=== PATIENT | male | born 2000 | race Hispanic/Latino ===

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

== ENCOUNTER 2023-07-07 00:36 | Emergency (ER) | payer BC, MEDICAID ==
[~2023-07-07] VITALS: Ht 175.3 cm; Wt 129.7 kg
[2023-07-07 01:06] LABS: BASOPHILS # (AUTO) 0.13 K/uL (0.00-0.20); BASOPHILS % (AUTO) 0.9 % (0.0-5.0); EOSINOPHILS # (AUTO) 0.13 K/uL (0.00-0.70); EOSINOPHILS % (AUTO) 0.9 % (0.0-8.0); HEMATOCRIT 33.8 % (42-54); IMMATURE GRANULOCYTE ABSOLUTE 0.14 K/uL (0-1); LYMPHOCYTES # (AUTO) 1.9 K/uL (1.0-4.8); LYMPHOCYTES % (AUTO) 12.9 % (21.0-51.0); MEAN CORPUSCULAR HEMOGLOBIN 30.2 pg (27.0-33.0); MEAN CORPUSCULAR HGB CONC 32.5 g/dL (32.0-36.0); MEAN CORPUSCULAR VOLUME 92.9 fL (80-100); NEUTROPHILS # (AUTO) 11.3 K/uL (1.8-7.7); NEUTROPHILS % (AUTO) 77.3 % (40.0-77.0); PLATELET COUNT (AUTO) 595 K/uL (130-400); RED BLOOD CELL COUNT(AUTO) 3.64 MIL/uL (4.50-6.20); RED CELL DISTRIBUTION WIDTH 12.8 % (11.0-15.5); WHITE BLOOD COUNT (AUTO) 14.7 K/uL (4.8-10.8)
[2023-07-07 01:08] LABS: APPEARANCE,URINE CLEAR (CLEAR); BILIRUBIN,URINE NEGATIVE (NEGATIVE); COLOR,URINE YELLOW (YELLOW); GLUCOSE, URINE (UA) NEGATIVE (NEGATIVE); KETONES,URINE NEGATIVE (NEGATIVE); LEUKOCYTE ESTERASE ,URINE NEGATIVE Leu/uL (NEGATIVE); NITRATE,URINE NEGATIVE (NEGATIVE); OCCULT BLOOD,URINE NEGATIVE (NEGATIVE); PH,URINE 5.5 (5.0-8.0); PROTEIN,URINE 20 mg/dL (NEGATIVE)
[2023-07-07 01:13] LABS: ADD UA MICROSCOPIC YES
[2023-07-07 01:14] LABS: MUCUS,URINE FEW LPF (None Seen); RBC,URINE 0-1 /HPF (0-1); SQUAMOUS EPITHELIAL CELL,UR RARE /HPF (0-2)
[2023-07-07] MEDS: MAGNESIUM HYDROXIDE 30 ML/UDCUP PO SCH (01:15)
[2023-07-07 01:26] LABS: POTASSIUM 4.1 mmol/L (3.5-5.1)
[2023-07-07 01:47] LABS: ALBUMIN 3.4 g/dL (3.5-5.0); CREATININE 0.7 mg/dL (0.5-1.3); TOTAL PROTEIN, SERUM 8.1 g/dL (6.0-8.3)
[2023-07-07] MEDS ORDERED: ONDA-104 PO (04:36)
[2023-07-07] MEDS ORDERED: MAG-55 PO (04:36)
[2023-07-07] MEDS ORDERED: OMEP40CA21 PO (04:36)
[2023-07-07 05:14] VITALS: BP 148/81; PULSE 95; RESP 20; O2SAT 98
== END 2023-07-07 05:16 | disposition home or self-care (01) ==
LOC: EDH 00:36
DX: K29.70 Gastritis, unspecified, without bleeding (principal); K59.00 Constipation, unspecified
CPT/HCPCS: 36415; 74018; 80053; 81001; 83880; 84484; 85025; 93005

== ENCOUNTER 2023-08-27 16:32 | Emergency (ER) | payer BC ==
[~2023-08-27] VITALS: Ht 175.3 cm; Wt 120.2 kg
[~2023-08-27 16:32] MED LIST: OMEP40CA21 PO
[2023-08-27 17:25] VITALS: BP 108/60; PULSE 87; RESP 18; O2SAT 99
== END 2023-08-27 17:55 | disposition home or self-care (01) ==
LOC: EDH 16:32
DX: Z48.03 Encounter for change or removal of drains (principal); K21.9 Gastro-esophageal reflux disease without esophagitis; Z79.899 Other long term (current) drug therapy; Z90.49 Acquired absence of other specified parts of digestive tract
CPT/HCPCS: 99281

== ENCOUNTER 2023-11-04 10:23 | Day surgery (SDC) | payer BC ==
[2023-11-04 10:44] LABS: BASOPHILS # (AUTO) 0.08 K/uL (0.00-0.20); EOSINOPHILS # (AUTO) 0.18 K/uL (0.00-0.70); EOSINOPHILS % (AUTO) 2.2 % (0.0-8.0); HEMATOCRIT 41.4 % (42-54); IMMATURE GRANULOCYTE ABSOLUTE 0.03 K/uL (0-1); LYMPHOCYTES # (AUTO) 2.6 K/uL (1.0-4.8); MEAN CORPUSCULAR HEMOGLOBIN 28.1 pg (27.0-33.0); MEAN CORPUSCULAR HGB CONC 31.4 g/dL (32.0-36.0); MEAN CORPUSCULAR VOLUME 89.6 fL (80-100); MONOCYTES # (AUTO) 0.7 K/uL (0.1-1.0); NEUTROPHILS # (AUTO) 4.8 K/uL (1.8-7.7); NEUTROPHILS % (AUTO) 57.4 % (40.0-77.0); PLATELET COUNT (AUTO) 308 K/uL (130-400); RED BLOOD CELL COUNT(AUTO) 4.62 MIL/uL (4.50-6.20); RED CELL DISTRIBUTION WIDTH 13.9 % (11.0-15.5); WHITE BLOOD COUNT (AUTO) 8.3 K/uL (4.8-10.8)
[2023-11-04 10:57] LABS: CREATININE 0.8 mg/dL (0.5-1.3); POTASSIUM 4.4 mmol/L (3.5-5.1)
[2023-11-04 11:00] LABS: INR 1.01 (0.85-1.15); PROTHROMBIN TIME 10.9 SEC (9.6-11.6)
[2023-11-04 11:01] LABS: PARTIAL THROMBOPLASTIN TIME 27.6 SEC (26.3-35.5)
[2023-11-04] MEDS ORDERED: HEParin-NS 1,000 UNIT/500 ML 500 ML IV ONE (14:38)
[2023-11-04] MEDS ORDERED: LIDOCAINE HCL 400MG/20ML VIAL ONE (14:38)
[2023-11-04] MEDS ORDERED: IOHEXOL-350 50ML VIAL IV ONE (14:38)
[2023-11-04] MEDS ORDERED: FENTanyl CITRate PF 50 MCG/1 ML 2ML VIAL ONE (14:58)
[2023-11-04] MEDS ORDERED: MIDAZOLAM HCL 1 MG/ML 2ML VIAL ONE (14:59)
[2023-11-04 15:38] VITALS: BP 137/71; PULSE 82; RESP 15
[2023-11-04 16:30] VITALS: BP 134/71; PULSE 79; RESP 15
== END 2023-11-04 16:30 | disposition home or self-care (01) ==
LOC: DAH 10:23
PROVIDERS: ATTEND Internal Medicine Gastroenterology
DX: S36.13XA Injury of bile duct, initial encounter (principal); R93.2 Abnormal findings on diagnostic imaging of liver and biliary tract; K83.1 Obstruction of bile duct; X58.XXXA Exposure to other specified factors, initial encounter; Y93.89 Activity, other specified; Y92.89 Other specified places as the place of occurrence of the external cause; Y99.8 Other external cause status
CPT/HCPCS: 47537; 80048; 85025; 85610; 85730; 36415; C1769; J3490; J2250; J1644; Q9967; 47531; 99156; 99157; J3010